=== PATIENT | female | born 1965 | race African-American/Black ===

== ENCOUNTER 2017-10-06 12:38 | Emergency (ER) | payer OTHER ==
[~2017-10-06] VITALS: Ht 162.6 cm; Wt 93.0 kg
--- NOTE | ~2017-10-06 | HC ---
[facility] [place] [address] [place] [address] CONSULTATION Name: BARRETT MATHEWS Room #: DEP Marco#: [id number] Admission: 10/06/17 Attend Phys: Discharge: 10/07/17 Date of : 61 Report #: [id number] THIS REPORT FOR: //name// CC: FAM unknown Pb Jernigan DATE OF SERVICE: 10/06/2017 HISTORY OF PRESENT ILLNESS: This is a 52-year-old female patient who was admitted with new onset of 2 seizures. The family described reasonably good history of a tonic clonic seizure. I have discussed this patient with the ER physician multiple times. I discussed the patient with family and the patient herself multiple times. The family gives a history that she had a severe headache. It does not look like it was a thunderclap headache; however, the headache was severe. It built up and then the patient had a seizure. She was postictal and combative. Subsequently, she became better. REVIEW OF SYSTEMS: Positive for lupus. She had headache before, but this was the most severe headache. Record indicates this patient takes tramadol and she was admitted with UTI. They also tell me that she was admitted to [facility] and that is where she was started on Cipro, I cannot confirm that. She has a white count, but it is not clear what her baseline white count is. I carried out the 14-point review of systems the best I can carry out. She had an abnormal MRI of the brain, but it is not clear if she ever had an MRI before or not. Family does not believe she did. PAST MEDICAL HISTORY: Positive for lupus. FAMILY HISTORY: Negative for congenital epilepsy. SOCIAL HISTORY: She has a large and very concerned family. PHYSICAL EXAMINATION: The patient's examination was carried out multiple times. She is alert. She is responsive, but she is not oriented. Her speech looks intact. She was able to name the president. Cranial nerve examination 2-12 was attempted. Her cooperation is very poor, but I think she can move all 4 extremities. She has no meningeal sign. I could not look at the fundus very well. She is a moderately built individual. She does not have any dysmorphic features of eyes, ears and face. Cardiac examinations appear noncontributory. The respiratory examination does not appear to be showing any respiratory difficulty or rhonchi. She did have a CT and subsequently had an MRI. That does appear to be showing pretty significant chronic changes, but no acute changes. IMPRESSION: [facility] [address] [place] [address] CONSULTATION Name: BARRETT MATHEWS Room #: DEP SETH Lara#: [id number] Admission: 10/06/17 Attend Phys: Discharge: 10/07/17 Date of : 61 Report #: [id number] 1. History of lupus with MRI demonstrating pretty significant chronic changes, but no acute changes and the vasculature looks open. 2. Seizures. If she was on tramadol and Cipro, that may be the etiology of the seizure, especially with abnormal MRI that she has. 3. WBC count is up and that may be because of seizure, but infection needs to be excluded. RECOMMENDATIONS: I talked to her multiple times. I believe this patient needs spinal tap and I recommended to the patient and the family. She has a pretty markedly abnormal MRI and we need to look for vasculitis, she had a prior lupus and she is predisposed to have opportunistic infection and she had a new onset seizure with WBC count. I think that is all an indication to proceed with the spinal tap. I discussed indication, potential complication and alternatives. Both patient and family are pretty adamant that they will not do the spinal tap at least for the time being. RECOMMENDATIONS: 1. We will start the patient on Keppra. 2. Her Cipro and tramadol should be discontinued. 3. We will check an EEG in this patient. 4. She needs to take seizure precaution. 5. I had an extensive discussion. The family has decided that they wanted to go to [facility] first. Subsequently, there was no bed there. They want us to check if the bed is available and now they have decided even if the bed is not available in [facility], they will go to [facility] . I have spent more than 50 minutes of time taking care of this patient today and majority of that time has been spent counseling the patient and the family on multiple occasions when I examined her and visited her. Thank you very much for this referral. <ELECTRONICALLY SIGNED> By: Waylon Arenas MD 10/12/171956 11 15 Waylon Arenas MD /nt
--- NOTE | ~2017-10-06 | EKG ---
[place] [address] [facility] [place] [address] ELECTROCARDIOGRAM REPORT Name: BARRETT MATHEWS Room #: 170-9 ADM IN M.R.#: [id number] Admission: 10/06/17 Attend Phys: Pb Jernigan MD Discharge: Date of : 61 Report #: [id number] THIS REPORT FOR: //name// [facility] ED Test Date: 2017-10-06 Test Time: 13:59:37 Pat Name: BARRETT MATHEWS Department: Room: 170 Gender: F Rehab Manager: [facility] : 1965 Requested By: Todd López Order Number: [id number] MD: Fili Beverly Measurements Intervals [place] Rate: 98 P: 49 ND: 143 QRS: -27 QRSD: 85 T: 38 QT: 317 QTc: 405 Interpretive Statements Sinus rhythm Borderline low voltage, extremity leads No previous ECG available for comparison Electronically Signed On 10-06-2017 17:34:26 CDT by Fili Beverly [email or web address] <ELECTRONICALLY SIGNED> By: Fili Beverly MD, [facility] 10/06/17 1734 1359 [id number] Fili Beverly MD, FACC /EPI
[2017-10-06 12:39] VITALS: BP 165/94
[2017-10-06 13:29] LABS: HEMATOCRIT 28.7 % (37.0-47.0); HEMOGLOBIN 9.7 gm/dL (12.0-15.0); MCH 30.2 pg (26.0-34.0); MCHC 33.8 g/dL (28.0-37.0); MCV 89.1 fL (80.0-100.0); RBC 3.22 mil/uL (4.20-5.00); RDW 15.5 % (10.5-14.5); WBC 17.1 thou/uL (4.0-11.0)
[2017-10-06 13:37] LABS: ANION GAP 13 mmol/L (7-16); BUN 35 mg/dL (7-18); CHLORIDE 110 mmol/L (98-107); CO2 19 mmol/L (21-32); CREATININE 1.1 mg/dL (0.6-1.0); GLUCOSE 119 mg/dL (74-106); POTASSIUM 3.1 mmol/L (3.5-5.1); SODIUM 142 mmol/L (136-145)
[2017-10-06 13:45] LABS: TROPONIN-I < 0.04 ng/mL (<0.06)
[2017-10-06 14:39] LABS: APTT 17.7 Seconds (24.5-32.8); PROTIME 10.4 Seconds (9.3-11.4)
[2017-10-06 17:22] VITALS: BP 170/99
[2017-10-06] MEDS ORDERED: HYDROCHLOROTHIA25 M2 PO (18:11)
[2017-10-06] MEDS ORDERED: PREDNISONE 20 M20 MG PO (18:11)
[2017-10-06] MEDS ORDERED: VASOTEC5 MG PO (18:12)
[2017-10-06] MEDS ORDERED: NORVASC10 MG PO (18:12)
[2017-10-06] MEDS ORDERED: VITAMIN D2000 UNIT PO (18:12)
[2017-10-06] MEDS ORDERED: TRAMADOL 50 MG50 MG PO (18:13)
[2017-10-06] MEDS ORDERED: PROTONIX40 M1 PO (18:13)
[2017-10-06 21:02] LABS: URINE BILIRUBIN NEGATIVE (Negative); URINE BLOOD 3+ (Negative); URINE CLARITY CLEAR; URINE COLOR YELLOW; URINE GLUCOSE-RANDOM* NEGATIVE (Negative); URINE KETONES NEGATIVE (Negative); URINE LEUKOCYTES-REFLEX NEGATIVE (Negative); URINE NITRITE-REFLEX NEGATIVE (Negative); URINE PROTEIN (DIPSTICK) 2+ (Negative); URINE SPECIFIC GRAVITY 1.025 (1.005-1.035); URINE UROBILINOGEN 0.2 E.U./dl (0.2-1.0)
[2017-10-06 21:09] LABS: AMP/METHAMP Negative (Negative); BARBITURATES Negative (Negative); BENZODIAZEPINES Negative (Negative); COCAINE Negative (Negative); METHADONE Negative (Negative); OPIATES Negative (Negative); PCP Negative (Negative)
[2017-10-06 21:13] LABS: BACTERIA-REFLEX 1-9 Few /HPF (None Seen); CRYSTALS None Seen /LPF (None Seen); FINE GRANULAR CASTS 4-10 Moderate /LPF (None Seen); HYALINE CASTS 0-3 Few /LPF (None Seen); MUCUS 4-6 Moderate strn/LPF (None Seen); SQUAMOUS 4-10 Moderate /LPF (0-3); URINE WBC-REFLEX >25 Many /HPF (0-5)
[2017-10-07 00:03] VITALS: BP 154/75
== END 2017-10-07 00:05 | disposition short-term general hospital (02) ==
LOC: ER 12:38 → EROBS 14:40 → ER 14:40
PROVIDERS: Emergency Medicine
DX: R56.9 Unspecified convulsions (principal)